=== PATIENT | male | born 1955 | race Caucasian/White ===

== ENCOUNTER 2023-03-16 09:54 | Day surgery (SDC) | payer MEDICARE, OTHER ==
[2023-03-16] MEDS: LACTATED RINGERS 1,000 ML IV ONE (09:59)
[2023-03-16] MEDS ORDERED: PROPOFOL 500 MG/50 ML 500 MG/50 ML VIAL ONE (10:49)
--- NOTE | 2023-03-16 11:05 | ANESTHESIA ---
Pre-Anesthesia VS, & Labs - Diagnosis screening - Procedure colonoscopy Vital Signs: Temp Pulse Resp BP Pulse Ox O2 Flow Rate 35.6 C L 54 L 16 141/80 H 100 03/16/23 10:00 03/16/23 10:00 03/16/23 10:00 03/16/23 10:00 03/16/23 10:00 Height: 6 ft Weight (kg): 93.6 kg Body Mass Index: 28.0 BMI Classification: Overweight - NPO >8 hours Home Medications and Allergies Home Medications: Ambulatory Orders Aspirin [[place]] 1 tab PO DAILY 03/15/23 Losartan/Hydrochlorothiazide [Losartan-Hctz 100-12.5 mg Tab] 1 tab PO DAILY 03/15/23 amLODIPine [Norvasc] 1 tab PO DAILY 03/15/23 Arginine [l-Arginine] 2 cap PO DAILY 03/16/23 Astaxanthin 1 cap PO DAILY 03/16/23 Cholecalciferol [Vitamin D3] 1 cap PO DAILY 03/16/23 Glucosamine/MSM/Hyaluron Acid [Jgqtifpxskq-VQJ-Camkdqrysf Tab] 1 tab PO DAILY 03/16/23 Magnesium Oxide [Magnesium] 1 tab PO 03/16/23 Selenium 50 mcg PO DAILY 03/16/23 Zinc Gluconate [Zinc] 1 tab PO DAILY 03/16/23 flaxseed oiL [Flaxseed Oil] 2 cap PO DAILY 03/16/23 Aspirin [[place]] 1 tab PO DAILY 03/15/23 Losartan/Hydrochlorothiazide [Losartan-Hctz 100-12.5 mg Tab] 1 tab PO DAILY 03/15/23 amLODIPine [Norvasc] 1 tab PO DAILY 03/15/23 Arginine [l-Arginine] 2 cap PO DAILY 03/16/23 Astaxanthin 1 cap PO DAILY 03/16/23 Cholecalciferol [Vitamin D3] 1 cap PO DAILY 03/16/23 Glucosamine/MSM/Hyaluron Acid [Penuuqglouw-XPX-Bzjkpzgntx Tab] 1 tab PO DAILY 03/16/23 Magnesium Oxide [Magnesium] 1 tab PO 03/16/23 Selenium 50 mcg PO DAILY 03/16/23 Zinc Gluconate [Zinc] 1 tab PO DAILY 03/16/23 flaxseed oiL [Flaxseed Oil] 2 cap PO DAILY 03/16/23 Allergies/Adverse Reactions: Allergies Allergy/AdvReac Type Severity Reaction Status Date / Time No Known Drug Allergies Allergy Verified 03/15/23 12:55 Anes History & Medical History - Anesthetic History Anesthesia Complications: reports: No previous complications Family history of Anesthesia Complications: Denies Family history of Malignant Hyperthermia: Denies - Medical History Cardiovascular: reports: Hypertension Pulmonary: reports: None Gastrointestinal: reports: Colon polyps Urinary: reports: Kidney stones Musculoskeletal: reports: None Endocrine/Autoimmune: reports: None Skin: reports: None History of Cancer?: Yes - Surgical History General: reports: Colonoscopy Exam General: Alert, Oriented x3, Cooperative Dental: WNL Mouth Openin Fingerbreadth Neck Mobility: Normal Mallampati classification: II Thyromental Distance: 4-6 cm Respiratory: Lungs clear Cardiovascular: Regular rate Plan Anesthesia Type: General, Total IV Consent for Procedure(s) Verified and Reviewed: Yes Code Status: Attempt Resuscitation ASA classification: 2-Mild systemic disease Is this case an emergency?: No
--- NOTE | 2023-03-16 11:24 | HISTORY & PHYSICAL EXAMINATION ---
Chief Complaint - Chief Complaint Chief Complaint: here for colon cancer screening History of Present Illness - History Obtained From Records Reviewed: yes History obtained from: pt Exam Limitations: none - History of Present Illness HPI Comment/Other: history colon polyps. no gi symptoms History - Past Medical History Cardiovascular: reports: Hypertension Respiratory: reports: None Endocrine/Autoimmune: reports: None GI: reports: Colon polyps : reports: Kidney stones HEENT: reports: None Psych: reports: None Musculoskeletal: reports: None Derm: reports: None MRSA Hx?: No - Past Surgical History General: reports: Colonoscopy Meds/Allgy - Home Medications Home Medications: Ambulatory Orders Medication Instructions Recorded Confirmed Aspirin [[place]] 1 tab PO DAILY 03/15/23 03/15/23 Losartan/Hydrochlorothiazide 1 tab PO DAILY 03/15/23 03/15/23 [Losartan-Hctz 100-12.5 mg Tab] amLODIPine [Norvasc] 1 tab PO DAILY 03/15/23 03/15/23 Arginine [l-Arginine] 2 cap PO DAILY 03/16/23 03/16/23 Astaxanthin 1 cap PO DAILY 03/16/23 03/16/23 Cholecalciferol [Vitamin D3] 1 cap PO DAILY 03/16/23 03/16/23 Glucosamine/MSM/Hyaluron Acid 1 tab PO DAILY 03/16/23 03/16/23 [Pguawdfkoou-JEF-Kudopwkkpt Tab] Magnesium Oxide [Magnesium] 1 tab PO 03/16/23 Selenium 50 mcg PO DAILY 03/16/23 03/16/23 Zinc Gluconate [Zinc] 1 tab PO DAILY 03/16/23 03/16/23 flaxseed oiL [Flaxseed Oil] 2 cap PO DAILY 03/16/23 03/16/23 - Allergies Allergies/Adverse Reactions: Allergies Allergy/AdvReac Type Severity Reaction Status Date / Time No Known Drug Allergies Allergy Verified 03/15/23 12:55 Review of Systems - Other Findings Other Findings: 10 pt ros as above otherwise unremarkable Exam - Vital Signs Reviewed Vital Signs: Yes Vital Signs: Vital Signs x48h Temp Pulse Resp BP Pulse Ox 03/16/23 10:00 35.6 C L 54 L 16 141/80 H 100 - Physical Exam General Appearance: positive: No acute distress, Alert Eyes Bilateral: positive: PERRL, EOMI, No scleral icterus ENT: positive: No signs of dehydration Neck: positive: No JVD, Trachea midline Respiratory: positive: No respiratory distress Cardiovascular: positive: Regular rate & rhythm Abdomen: positive: No distention Neurologic/Psychiatric: positive: Oriented x3 Conclusion/Plan - Problem List (1) History of adenomatous polyp of colon Conclusion/Plan: plan colonoscopy. parq held and consent obtained
[2023-03-16] MEDS ORDERED: PROPOFOL 200 MG/20 ML VIAL IVP ONE (11:42)
[2023-03-16] MEDS: LACTATED RINGERS 100 ML IV ONE (12:00)
[2023-03-16 12:33] VITALS: BP 129/78
--- NOTE | 2023-03-16 17:08 | ANESTHESIA POST OP EVALUATION ---
Anesthesia Post Eval - Post Anesthesia Eval Vitals: Last Vital Signs Temp 36.0 C L 03/16/23 12:22 Pulse 56 L 03/16/23 12:22 Resp 16 03/16/23 12:22 BP 129/78 03/16/23 12:22 Pulse Ox 99 03/16/23 12:22 O2 Flow Rate CV Function Including HR & BP: Stable Pain Control: Satisfactory Nausea & Vomiting: Negative Mental Status: Baseline Respiratory Status: Airway Patent Hydration Status: Satisfactory Anesthesia Complications: None
== END 2023-03-16 09:55 | disposition home or self-care (01) ==
LOC: SDS 09:54
PROVIDERS: ATTEND Surgery
PROC: 0DBL8ZZ Excision of Transverse Colon, Via Natural or Artificial Opening Endoscopic (ICD-10-PCS; principal; 2023-03-16 11:00)
DX: Z12.11 Encounter for screening for malignant neoplasm of colon (principal); K63.5 Polyp of colon
CPT/HCPCS: 45380; J7120

== ENCOUNTER 2023-07-25 14:02 | Outpatient (CLI) | payer MEDICARE, OTHER ==
--- NOTE | 2023-07-26 19:57 | Ultrasound Report ---
PROCEDURE: Head or Neck Soft Tissue INDICATIONS: ABNORMALITY ON SCREENING TEST TECHNIQUE: Real-time scanning was performed of the thyroid gland, with image documentation. COMPARISON: None FINDINGS: Right: Thyroid lobe measures 5.2 x 1.3 x 2.0 cm, and is homogeneous in echotexture. Left: Thyroid lobe measures 4.9 x 1.3 x 1.9 cm, and is homogenous in echotexture. Isthmus: 2.8 mm thick. Nodule number: One Location: Right mid Size: 1.1 x 0.6 x 1.3 cm. Composition: Spongiform. Echogenicity: Hypoechoic. Shape: wider than tall. Margins: Smooth (0 points). Echogenic foci: None (0 points). Total points: 3 ACR TI-RADS category: 3. Nodule number: Two Location: Left superior Size: 0.7 x 0.5 x 0.6 cm. Composition: Cystic. Echogenicity: Hypoechoic. Shape: wider than tall. Margins: Smooth (0 points). Echogenic foci: None (0 points). Total points: 2 ACR TI-RADS category: 2. Nodule number: Three Location: Left superior Size: 0.8 x 0.6 x 0.9 cm. Composition: Spongiform. Echogenicity: Hypoechoic. Shape: wider than tall. Margins: Smooth (0 points). Echogenic foci: None (0 points). Total points: 2 ACR TI-RADS category: 2. Nodule number: Four Location: Left superior Size: 0.8 x 0.6 x 0.9 cm. Composition: Solid. Echogenicity: Hypoechoic. Shape: wider than tall. Margins: Smooth (0 points). Echogenic foci: None (0 points). Total points: 4 ACR TI-RADS category: 4. IMPRESSION: Subcentimeter and benign-appearing left-sided thyroid nodules. Best practice guidelines do not requir e FNA or follow-up ACR TI-RADS definitions and recommendations: TI-RADS 1 (benign): 0 points. FNA not needed. TI-RADS 2 (not suspicious): 2 points. FNA not needed. TI-RADS 3 (mildly suspicious): 3 points. "FNA if 2.5 cm or larger, follow up if 1.5 cm or larger (at 1, 3, and 5 years). TI-RADS 4 (moderately suspicious): 4-6 points. "FNA if 1.5 cm or larger, follow up if 1 cm or larger (at 1, 2, 3, and 5 years). TI-RADS 5 (highly suspicious): 7 points or more. "FNA if 1 cm or larger, follow up if 0.5 cm or larger (every year for 5 years). Reviewed by: Rian Roland MD on 07/26/2023 6:55 PM [facility] Approved by: Rian Roland MD on 07/26/2023 6:55 PM AKDT Station ID: [id number]
== END 2023-07-25 14:03 | disposition home or self-care (01) ==
LOC: DI 14:02
PROVIDERS: ATTEND Physician Assistant
DX: R94.6 Abnormal results of thyroid function studies (principal); E04.2 Nontoxic multinodular goiter